=== PATIENT | male | born 1965 | race Caucasian/White ===

== ENCOUNTER 2019-07-05 08:49 | Outpatient (CLI) | payer MEDICARE, MEDICAID, SELFPAY | END 2019-07-05 08:50 | disposition home or self-care (01) | LOC: RAD 08:55 | PROVIDERS: Family Provider Family Medicine; PCP Family Medicine; Visit Provider Internal Medicine Critical Care Medicine | DX: J44.9 Chronic obstructive pulmonary disease, unspecified (principal) | CPT/HCPCS: 94060; 94726; 94729; J7611 ==

== ENCOUNTER 2019-07-27 04:12 | Inpatient (IN) | payer MEDICARE, MEDICAID, SELFPAY ==
[2019-07-27] VITALS (14 sets, daily range): BP systolic 101–132; BP diastolic 75–88; PULSE 92–117; RESP 15–29; TEMP 36.4–36.7; O2SAT 89–96; BMI 38.8
[2019-07-27] MEDS: ipratropium-albuterol 3 mL Neb INHALATION ×3 (07:18→20:28)
--- NOTE | 2019-07-27 07:34 | PM.HP ---
Providers/Chief Complaint Admitting Physician: Susie Johnson MD Primary Care Provider: Norman Ruggiero MD Chief Complaint: CHF History of Present Illness Wilfrido Gavin is a 54 year old male who originally presented to [facility] a week or so ago. He was seen in the emergency room with difficulty breathing. He was evaluated and found to have evidence of some COPD. He was discharged but then had a near syncopal episode and ultimately ended up being admitted to the hospital. Treatment initially involves steroids and antibiotics for COPD exacerbation. He was found to have evidence of some volume overload with elevated BNP. An echocardiogram was done during the hospital stay at [facility] and revealed an ejection fraction of 17%. This is a new finding for him. He states that he had a problem with a low ejection fraction years ago but that he treated it himself and it got better. He states his last ejection fraction was around 50%. Denies any history of coronary artery disease. He has had some arrhythmia with a history of atrial fibrillation. Review of Systems Const: Reports: change in weight Eyes: Denies: change in vision ENMT: Reports: dry mouth; Denies: throat pain Card: Reports: chest pain, palpitations, irregular heart rhythm, edema, swelling of feet/ankles, lightheadedness, pre-syncope, shortness of breath on exertion and shortness of breath when lying down Resp: Reports: shortness of breath, productive cough, non-productive cough and wheezing; Denies: pain on inspiration or coughing up blood GI: Reports: nausea; Denies: abdominal pain, vomiting or diarrhea : Denies: difficulty urinating Musc: Reports: redness (Legs have been red for years) and muscle weakness (General rather than specific); Denies: neck pain or joint pain Skin/Breast: Reports: redness and dry skin; Denies: itching or skin tenderness Neuro: Reports: difficulty walking; Denies: numbness in extremities or weakness in extremities Psych: Reports: anxiety Saurav/Lymph: Denies: easy bruising or easy bleeding Medications/Allergies Home Medications Medication Instructions Recorded Confirmed Last Taken Type aspirin 81 mg PO DAILY 07/27/19 07/27/19 07/26/19 08:00 History atorvastatin 10 mg PO DAILY 07/27/19 07/27/19 07/26/19 08:00 History bumetanide 2 mg PO 0900,1400 07/27/19 07/27/19 07/26/19 14:00 History digoxin 125 mcg PO DAILY 07/27/19 07/27/19 07/26/19 08:00 History doxycycline hyclate 100 mg PO BID 07/27/19 07/27/19 07/26/19 21:00 History xzrkqtspxpm-osdvpllbl-lfbhwtpd 1 inh INHALATION DAILY 07/27/19 07/27/19 07/26/19 08:00 History [Trelegy Ellipta] hydrocodone-acetaminophen 1 tab PO Q6H PRN 07/27/19 07/27/19 07/26/19 22:00 History ipratropium-albuterol 3 ml INHALATION Q6H 07/27/19 07/27/19 07/26/19 22:00 History levalbuterol tartrate [Xopenex HFA] 2 inh INHALATION Q6H PRN 07/27/19 07/27/19 07/26/19 12:00 History lisinopril 5 mg PO BEDTIME 07/27/19 07/27/19 07/26/19 21:00 History metolazone 2.5 mg PO DAILY PRN 07/27/19 07/27/19 07/26/19 08:00 History metoprolol succinate 25 mg PO DAILY 07/27/19 07/27/19 07/26/19 08:00 History potassium chloride 20 meq PO DAILY 07/27/19 07/27/19 07/26/19 08:00 History prednisone 20 mg PO DAILY 07/27/19 07/27/19 07/26/19 08:00 History Allergies Allergy/AdvReac Type Severity Reaction Status Date / Time oxycodone Allergy Unknown Verified 07/27/19 04:29 Penicillins Allergy ALGY-Anaphy Verified 07/27/19 04:29 laxis PFSH Acute PFSH: Statuses (acute, chronic, etc) shown below reflect problem list status as previously entered and may not be historically accurate Medical History (Updated 07/27/19 @ 09:13 by Janet Huber MD) Acute on chronic systolic heart failure Atrial fibrillation and flutter Atrial fibrillation with rapid ventricular response Congestive heart failure COPD (chronic obstructive pulmonary disease) 2-3 L of oxygen by nasal cannula chronically Hyperlipidemia Hypertension Surgical History History of cholecystectomy History of hernia repair History of reconstruction of anterior cruciate ligament tear Family History (Updated 07/27/19 @ 07:54 by Susie Johnson MD) Denies family history of CAD (coronary artery disease) Social History (Updated 07/27/19 @ 07:54 by Susie Johnson MD) Smoking and tobacco status: former smoker Vitals/I&O/Wt Last Vital Signs Temp 97.7 F 07/27/19 07:19 Pulse 102 H 07/27/19 07:23 Resp 21 H 07/27/19 07:19 BP 130/76 07/27/19 07:19 Pulse Ox 96 07/27/19 07:19 07/26/19 07/27/19 07/27/19 22:59 06:59 14:59 Intake Total 240 / 240 Balance 240 / 240 Weight last 48 hrs Weight 119.315 kg Physical Exam Const: COMMON NORMALS: oriented x3 and alert HENMT: COMMON NORMALS: normocephalic and head/scalp atraumatic Eye: COMMON NORMALS: PERRL and EOMs intact bilaterally Neck/C-Spine: COMMON NORMALS: supple GENERAL: Yes JVD Resp: EFFORT & INSPECTION: Yes able to speak in complete sentences and Yes prolonged expiratory phase AUSCULTATION: wheezes scattered wheezes and diminished lung sounds (Both bases) Cardio: JUGULAR VENOUS DISTENTION: JVD positive to the level of the angle of the jaw RHYTHM: abnormal rhythm irregularly irregular HEART SOUNDS: no murmurs GI: COMMON NORMALS: normal to inspection, nondistended, normoactive bowel sounds and soft to palpation Back/Pelvis: COMMON NORMALS: no CVA tenderness Extremity: NARRATIVE EXTREMITY EXAM: 3+ edema with intense erythema noted to both lower extremities below the knee Neuro: COMMON NORMALS: oriented x3 and moves all extremities Psych: COMMON NORMALS: cooperative Skin: NARRATIVE SKIN EXAM: Intense erythema below the knee bilaterally, with no warmth associated. Does have some dry scaling skin noted. Patient states the erythema is chronic and the degree of edema is improved. Data : 07/27/19 08:37 Other Labs: Echocardiogram from outside facility showed an estimated ejection fraction of 17%. Grade 2 diastolic dysfunction was noted. Right ventricular systolic pressure was 38 mmHg right atrial enlargement was noted as was global LV dysfunction BUN and creatinine were 35/0.7, proBNP was 2750, potassium was 5.2, LFTs were normal, H&H was 14/44 A&P Assessment and plan (1) Congestive heart failure: Ejection fraction of 17% which is new. Patient has been on an RICHMOND inhibitor started recently at outside facility. He was transferred for cardiology input and evaluation, particularly in regards to possibility of LifeVest/AICD. Been on Bumex and metolazone as well. Status: Acute Qualifiers: Heart failure chronicity: acute Heart failure type: systolic Qualified Code(s): I50.21 - Acute systolic (congestive) heart failure Code(s): I50.9 - Heart failure, unspecified (2) COPD (chronic obstructive pulmonary disease): Has been on treatment for recent exacerbation and continues on antibiotics in the form of doxycycline as well as prednisone, breathing treatments as well Status: Acute Qualifiers: COPD type: COPD with acute exacerbation Qualified Code(s): J44.1 - Chronic obstructive pulmonary disease with (acute) exacerbation Code(s): J44.9 - Chronic obstructive pulmonary disease, unspecified (3) Atrial fibrillation and flutter: Chronically on digoxin , does have some tachycardia Status: Chronic Code(s): I48.91 - Unspecified atrial fibrillation; I48.92 - Unspecified atrial flutter (4) Hypertension: chronically on beta blockade, richmond inhibitor and diuretics Status: Chronic Qualifiers: Hypertension type: essential hypertension Qualified Code(s): I10 - Essential (primary) hypertension Code(s): I10 - Essential (primary) hypertension (5) Hyperlipidemia: chronically on statin Status: Chronic Qualifiers: Hyperlipidemia type: unspecified Qualified Code(s): E78.5 - Hyperlipidemia, unspecified Code(s): E78.5 - Hyperlipidemia, unspecified Additional A&P Information Inpatient admission Cardiology consultation Continue diuretics that he has been on in the form of Bumex and metolazone for now Continue RICHMOND inhibitor, monitoring renal function Continue beta-blockade Continue aspirin and statin Continue digoxin Continue breathing treatments and doxycycline as well as prednisone for COPD Lovenox for DVT prophylaxis Supportive care otherwise Plans discussed with patient and he was given an opportunity to ask questions Full code Coding Level of Care Code Acute Roll Up Guider Operator for Jamilah Palencia Diagnoses Congestive heart failure I50.21 Heart failure chronicity: acute Heart failure type: systolic COPD (chronic obstructive pulmonary disease) J44.1 COPD type: COPD with acute exacerbation Atrial fibrillation and flutter I48.91; I48.92 Hypertension I10 Hypertension type: essential hypertension Hyperlipidemia E78.5 Hyperlipidemia type: unspecified
--- NOTE | 2019-07-27 07:45 | ECG_ITS ---
Measurements Intervals [place] Rate: 100 P: 68 W[place]: 183 QRS: 251 QRSD: 177 T: 35 QT: 401 QTc: 518 SINUS TACHYCARDIA LEFT ATRIAL ENLARGEMENT [-0.15mV P WAVE IN V1/V2] MARKED RIGHT AXIS DEVIATION [QRS AXIS > 100] RIGHT BUNDLE BRANCH BLOCK [120+ ms QRS DURATION, UPRIGHT V1, 40+ ms S IN I/aVL/V4/V5/V6] ANTEROSEPTAL MYOCARDIAL INFARCTION [40+ ms Q WAVE IN V1-V4], OF INDETERMINATE AGE Compared to ECG 07/26/2018 10:25:43 Atrial abnormality now present Myocardial infarct finding now present Atrial flutter no longer present Electronically Signed On 07-27-2019 20:08:22 HULL INSPECTOR by Janet Huber M.D. [email or web address]
--- NOTE | 2019-07-27 09:08 | PM.CONSULT ---
Providers/Reason For Consult Consulting Physican/Specialty*: ANA Huber MD/cardiology Reason for Consult*: Patient with cardiomyopathy and congestive heart failure Attending Physician: Bao Frost MD Primary Care Provider: Norman Ruggiero MD History of Present Illness History of Present Illness Wilfrido Gavin is a 54 year old male, is transferred to us from [facility]. Apparently the patient was admitted to that hospital with symptoms of progressive shortness of breath and leg swelling. He was found to have LV ejection fraction of around 17% based on the echocardiogram report done at the outside facility. Cardiology consult is requested for further cardiac evaluation recommendations. Patient apparently has a longstanding history of cardiomyopathy and congestive heart failure. He has been very poorly compliant with medications and follow-up. He moved around to many places and doctors in the last few years. Approximately 3 years ago, he was seen by a help desk associate in [place]. He was told to have an ejection fraction around 27% at that time. He was on a LifeVest for a short. Apparently there were some many psychosocial issues surrounding him. As per the patient, the LifeVest was confiscated by his family members and finally it was returned to the [employer]. There was a mention of ICD implantation but the patient never could keep up his follow-up with the physicians or compliant with medications. He is a very poor historian. He has a history of heavy alcohol abuse. According to him, he has not been drinking for the last 6 months. He also has a longstanding history of smoking abuse, a pack a day for 40 years or so. He quit smoking a year ago. For the last few months, his shortness of breath has been getting worse. He has been noticing swelling of both lower extremities. He has not had any chest pain or palpitation. He had an episode of passing out spell on his driveway, 3 months ago. He does not recall exactly how that happened. He was very short of breath prior to this. He has no document history of any cardiac arrhythmia. He was diagnosed with a heart failure 20 years ago. He also had a cardiac catheterization sometime in the past, could be more than 10 years ago. He does not recall exactly where it was done. He has a history of atrial flutter/fibrillation by EKG done in July 2018. He also has a history of hypertension and dyslipidemia. No history for diabetes. No history for CVA. No history for peripheral arterial disease. He was seen by Dr. Singleton-the motion and time study teacher recently. He was complaining of hemoptysis. As of now, his shortness of breath is better. Denies any chest pain or palpitation. Review of Systems Narrative: CONSTITUTIONAL: No fever or chills. Has some amount of fatigue EYES: No blurring of vision or other visual disturbances lately. ENT: No hoarseness of voice, auditory disturbances or sore throat. Has hearing impairment CARDIOVASCULAR: As mentioned above. RESPIRATORY: COPD/shortness of breath also complains of hemoptysis GASTROINTESTINAL: No hematemesis or melena. GENITOURINARY: No dysuria or hematuria. INTEGUMENTARY: No skin rashes or history of skin cancer. NEURO: No transient ischemic attacks or amaurosis. PSYCHIATRIC: No history of psychosis or major depression. HEMATOLOGIC: No bleeding disorders or significant anemia. ENDOCRINE: No history of polyuria or polydipsia. MUSCULOSKELETAL: No recent joint pain or swelling. ALLERGY/IMMUNOLOGY: As mentioned above. Meds/Allergies Home Medications and Allergies Home Medications Medication Instructions Recorded Confirmed Type aspirin 81 mg PO DAILY 07/27/19 07/27/19 History atorvastatin 10 mg PO DAILY 07/27/19 07/27/19 History bumetanide 2 mg PO 0900,1400 07/27/19 07/27/19 History digoxin 125 mcg PO DAILY 07/27/19 07/27/19 History doxycycline hyclate 100 mg PO BID 07/27/19 07/27/19 History kdbvmqvxaun-nyxclairw-bbtsqhaa 1 inh INHALATION DAILY 07/27/19 07/27/19 History [Trelegy Ellipta] hydrocodone-acetaminophen 1 tab PO Q6H PRN 07/27/19 07/27/19 History ipratropium-albuterol 3 ml INHALATION Q6H 07/27/19 07/27/19 History levalbuterol tartrate [Xopenex HFA] 2 inh INHALATION Q6H PRN 07/27/19 07/27/19 History lisinopril 5 mg PO BEDTIME 07/27/19 07/27/19 History metolazone 2.5 mg PO DAILY PRN 07/27/19 07/27/19 History metoprolol succinate 25 mg PO DAILY 07/27/19 07/27/19 History potassium chloride 20 meq PO DAILY 07/27/19 07/27/19 History prednisone 20 mg PO DAILY 07/27/19 07/27/19 History Allergies Allergy/AdvReac Type Severity Reaction Status Date / Time oxycodone Allergy Unknown Verified 07/27/19 04:29 Penicillins Allergy ALGY-Anaphy Verified 07/27/19 04:29 laxis Current Medications Current Medications Generic Name Dose Route Start Last Admin Trade Name Freq PRN Reason Stop Dose Admin Albuterol/Ipratropium 3 ml 07/27/19 06:57 07/27/19 07:18 Duoneb INHALATION 3 ml Q4H PRN Administration SHORTNESS OF BREATH Current Medications Acetaminophen (Tylenol) 650 mg PO Q6H PRN PRN Reason: Mild/Mod Pain Or Temp >/= 101 Hydrocodone Bitart/Acetaminophen ([place] 10-325 Mg) 1 tab PO Q6H PRN PRN Reason: Moderate Pain (Scale Score 5-6) Albuterol/Ipratropium (Duoneb) 3 ml INHALATION Q4H PRN PRN Reason: SHORTNESS OF BREATH Last Admin: 07/27/19 07:18 Dose: 3 ml Documented by: Aspirin (Aspirin Ec) 81 mg PO DAILY [facility] Atorvastatin Calcium (Lipitor) 20 mg PO BEDTIME [facility] Bisacodyl (Dulcolax) 10 mg PO DAILY PRN PRN Reason: CONSTIPATION Bumetanide (Bumex) 1 mg IV Q12H [facility] Digoxin (Lanoxin) 125 mcg PO DAILY [facility] Doxycycline Monohydrate (Vibramycin) 100 mg PO BID [facility] Enoxaparin Sodium (Lovenox) 40 mg SUBCUT Q24H [facility] Lisinopril (Prinivil) 5 mg PO BEDTIME [facility] Metolazone (Zaroxolyn) 2.5 mg PO DAILY [facility] Metoprolol Succinate (Toprol Xl) 25 mg PO DAILY [facility] Non-Formulary Medication (Qhtjidefair-Pgfvsiwak-Vobcfytj [Trelegy Ellipta]) 1 inh INHALATION DAILY [facility] Ondansetron HCl (Zofran) 4 mg PO Q8H PRN PRN Reason: NAUSEA Potassium Chloride (Klor-Con 10) 20 meq PO DAILY [facility] Prednisone (Prednisone) 20 mg PO DAILY [facility] PFSH Acute PFSH: Statuses (acute, chronic, etc) shown below reflect problem list status as previously entered and may not be historically accurate Medical History (Updated 07/27/19 @ 10:26 by Janet Huber MD) Acute on chronic systolic heart failure Atrial fibrillation and flutter Atrial fibrillation with rapid ventricular response Benign essential hypertension with target blood pressure below 140/90 Congestive heart failure COPD (chronic obstructive pulmonary disease) 2-3 L of oxygen by nasal cannula chronically Hyperlipidemia Hypertension Surgical History History of cholecystectomy History of hernia repair History of reconstruction of anterior cruciate ligament tear Family History (Updated 07/27/19 @ 10:29 by Janet Huber MD) Grandmother Congestive heart failure, Onset Age: 70 of heart failure Denies family history of CAD (coronary artery disease) Social History (Updated 07/27/19 @ 07:54 by Susie Johnson MD) Smoking and tobacco status: former smoker Vitals/I&O/Wt Last Vital Signs Temp 97.7 F 07/27/19 07:19 Pulse 102 H 07/27/19 07:23 Resp 21 H 07/27/19 07:19 BP 130/76 07/27/19 07:19 Pulse Ox 96 07/27/19 07:19 07/26/19 07/27/19 07/27/19 22:59 06:59 14:59 Intake Total 240 / 240 Balance 240 / 240 Weight last 48 hrs Weight 263 lb 0.7 oz Physical Exam Narrative: EXAM NARRATIVE: GENERAL: The patient is alert and oriented times three. Not in any acute distress. Slightly tachypneic. HEENT: No significant pallor, icterus or lymphadenopathy. The pupils are reactant to light. Oral cavity: There are no mucous membrane lesions. Funduscopic examination: Fundus is not visualized. NECK: Trachea appears to be central. Soft tissue mass on the back of the neck, possibly lipoma. No JVD or thyromegaly appreciated. No carotid bruit. RESPIRATORY: Chest is symmetrical. No intercostals muscle retraction or any accessory muscle activation. There is no chest wall tenderness. Breath sounds are heard bilaterally. The breath sounds are diminished in the bases. Few fine rales at the base. No evidence of consolidation BREASTS: Deferred. HEART: The PMI could not be palpated. No other palpable precordial events. . S1 and S2 are normal. Soft S3 present. No S4 heard. No pericardial rub or any click heard. ABDOMEN: No vessel pulsations or distention. No tenderness. No organomegaly appreciated. No abdominal bruit. Bowel sounds are normally heard. : Deferred. RECTAL: Deferred. LYMPHATIC: No lymphadenopathy noted in the neck or groin. EXTREMITIES: 2-3+ pitting edema. The lower extremities are diffusely erythematous and scaly with some excoriation but no ulcerations. Peripheral pulses are palpable and fairly good volume and amplitude. MUSCULOSKELETAL: No acute joint deformities or swelling SKIN: There are no significant scars or skin rash noted. Diffuse erythema of the lower extremity with some scaling NEUROPSYCHIATRIC: The patient is alert and oriented x3. Appears to be in a good mood. The higher functions are grossly within normal limits. No tremors or rigidity noted. Data Labs: Other Labs: Laboratory Results - last 24 hr 07/27/19 08:37 Sodium 134 L Potassium 4.1 Chloride 72 L Carbon Dioxide 49 H* Anion Gap 17.1 BUN 40 H Creatinine 0.8 GFR Calculation 100.7 Glucose 98 Calculated Osmolal ity 276 L Calcium 10.7 H Phosphorus 3.0 Magnesium 1.6 L NT-Pro-B Natriuret Pep 1824 H Triglycerides 156 H Cholesterol 96 LDL Cholesterol, C alc 36 L HDL Cholesterol 29 L LDL/HDL Ratio 1.24 Cholesterol/HDL Ra nallely 3.31 TSH 0.82 EKG^: EKG 1: My Interpretation: Sinus rhythm with a heart rate of 100 bpm. Left atrial enlargement. Right bundle branch block. Extreme right axis deviation. A&P Assessment and plan (1) Acute on chronic systolic heart failure: Patient apparently has a history of longstanding LV systolic dysfunction. Poorly compliant with medications and medical follow-up. Currently he has features of decompensated heart failure. Hemodynamically seems to be stable. The plan would be to optimize his afterload reducing agents. He might benefit from Entresto. I will discontinue the lisinopril and start him on losartan 25 mg p.o. daily. After 48 hours, we may discontinue the losartan and start him on Entresto. The etiology of the LV dysfunction is not known at this time. He may benefit from a cardiac catheterization to further evaluate his coronary status and decide on further management. After treating the heart failure appropriately, we may consider further invasive cardiac work-up. Status: Acute Code(s): I50.23 - Acute on chronic systolic (congestive) heart failure (2) Atrial fibrillation with rapid ventricular response: Patient has a history of atrial flutter/fibrillation. Because of the high substrate for arrhythmia, it would be appropriate to start him on IV anticoagulation at this time. I may change the Lovenox dose to therapeutic. Status: Acute Code(s): I48.91 - Unspecified atrial fibrillation (3) Benign essential hypertension with target blood pressure below 140/90: The patient is a stage II hypertension. We will try to optimize his antihypertensive medications. Status: Acute Code(s): I10 - Essential (primary) hypertension (4) Hyperlipidemia: Patient is on atorvastatin. This may be continued. Status: Chronic Qualifiers: Hyperlipidemia type: unspecified Qualified Code(s): E78.5 - Hyperlipidemia, unspecified Code(s): E78.5 - Hyperlipidemia, unspecified (5) COPD (chronic obstructive pulmonary disease): Patient has a history of hemoptysis. He was evaluated by the motion and time study teacher. May try to optimize the bronchodilator treatment. Management as per the primary. Status: Acute Qualifiers: COPD type: COPD with acute exacerbation Qualified Code(s): J44.1 - Chronic obstructive pulmonary disease with (acute) exacerbation Code(s): J44.9 - Chronic obstructive pulmonary disease, unspecified Additional A&P Information His other problems are History of heavy alcohol abuse, 6 months ago History of smoking abuse Based on the patient's clinical response, further recommendations will be made. Thank you for the opportunity to eval this patient and make these recommendations Coding Level of Care Code Acute Stock Buyer for Jamilah Palencia Diagnoses Acute on chronic systolic heart failure I50.23 Atrial fibrillation with rapid ventricular response I48.91 Benign essential hypertension with target blood pressure below 140/90 I10 Hyperlipidemia E78.5 Hyperlipidemia type: unspecified COPD (chronic obstructive pulmonary disease) J44.1 COPD type: COPD with acute exacerbation
[2019-07-27 09:15] LABS: Blood Urea Nitrogen 40 mg/dL (6-20); Calcium 10.7 mg/dL (8.5-10.5); Chloride 72 mmol/L (98-107); Chol HDL Ratio 3.31 mg/dL (1.0-5.00); Cholesterol 96 mg/dL (0-200); Glomerular Filtration Rate 100.7 mL/min (90-130); Glucose 98 mg/dL (65-115); HDL Cholesterol 29 mg/dL (60-100); LDL Cholesterol Calculated 36 mg/dL (50-129); LDL HDL Ratio 1.24 RATIO (0.00-3.22); Magnesium 1.6 mg/dL (1.7-2.3); NT Pro B Type Natriuretic Pept 1824 pg/mL (0-125); Osmolality Calculated 276 mOsm/kg (285-295); Potassium 4.1 mmol/L (3.5-5.1); Sodium 134 mmol/L (136-145); Thyroid Stimulating Hormone 0.82 uIU/mL (0.27-4.20); Triglycerides 156 mg/dL (0-150)
[2019-07-27 09:21] LABS: Anion Gap 17.1 (5-19)
[2019-07-27] MEDS: enoxaparin 40 mg/0.4 mL Syringe SUBCUT (09:25)
[2019-07-27 09:26] LABS: Carbon Dioxide 49 mmol/L (22-29)
[2019-07-27] MEDS: aspirin 81 mg EC Tablet PO (09:26)
[2019-07-27] MEDS: metoprolol succinate ER (24 HR) 25 mg Tablet PO (09:26)
[2019-07-27] MEDS: predniSONE 20 mg Tablet PO (09:26)
[2019-07-27] MEDS: doxycycline 100 mg Tablet PO ×2 (09:26→17:30)
[2019-07-27] MEDS: digoxin 125 mcg Tablet PO (09:26)
[2019-07-27] MEDS: metOLazone 5 MG Tablet 2.5 MG PO (09:27)
[2019-07-27] MEDS: bumetanide 0.25 mg/mL SDV 10 mL 2 MG IV (09:42)
--- NOTE | 2019-07-27 12:46 | PC.CHAP ---
Pastoral Care Encounter/Spiritual Assessment Type of Contact [] Declined distribution field technician visit [] Patient/Family/Request visit [] Outpatient visit [] Follow-up visit [] Physician referral [] Code/Alert [] Routine visit [] Staff referral [] Actively dying [] Patient sleeping [] Family support [] [] Out of room [] Palliative care [] [] Receiving care in room [] Pre-surgical visit [] Trauma [] Long length of stay [] ICU visit [] Other: Relational/Emotional Strength [] Patient feels connected with others/family/visitors/staff [] Distress [] Loneliness/isolation [] Abandonment Spirituality of Patient [x] Person of Felicia [] Attends Spiritism of their Felicia [] Believes in Prayer [] Reads Bible or Druze materials [] There are Spiritual issues to be addressed Steam Heating Installer Interventions [x] Prayer [] Active listening [] Non-anxious presence [] Spiritual/emotional support [] Crisis/trauma care [] Spiritual counseling [] Bereavement support [] Provided bereavement packet [] Provided Bible/devotional materials [] Provided toy/stuffed animal, coloring book to patient or family member [] Provided Communion [] Anointing/[place] [] Salvation [x] Completed spiritual assessment [] Other: Impact on Illness or Injury [] Angry [] Fearful [] Anxious [] Often cries [] Exhaustion [] Unable to work [] Unable to attend shinto [] Unable to walk/stand [] Unable to read [] Unable to drive [] Unable to eat/drink [] Unable to sleep [] Unable to be with family [] Patient intubated [] Other: Summary Sivakumar requested floor fan for patients comfort. Time spent with patient 15 min
--- NOTE | 2019-07-27 13:59 | PM.PN ---
Subjective Subjective: Interval history: History and physical was reviewed. Current denies any complaints currently other than short of breath with exertion. No chest discomfort. 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 Medications: Reviewed: Yes Vitals/I&O/Wt Last Vital Signs Temp 97.6 F 07/27/19 10:55 Pulse 95 07/27/19 13:36 Resp 18 07/27/19 13:36 BP 132/87 07/27/19 10:55 Pulse Ox 94 07/27/19 13:36 07/26/19 07/27/19 07/27/19 22:59 06:59 14:59 Intake Total 240 / 240 240 / 240 Output Total 1250 / 1250 Balance 240 / 240 -1010 / -1010 Weight last 48 hrs Weight 119.315 kg Physical Exam Narrative: EXAM NARRATIVE: General exam no apparent distress Cardiovascular regular rate and rhythm, heart sounds distant Lungs bibasilar crackles Abdomen is soft, positive bowel sounds Extremities 1+ bilateral edema, which appears chronic Data : 07/27/19 08:37 A&P Assessment and plan (1) Congestive heart failure: Severely low EF of 17%. Past history of cardiomyopathy which he reports recovered in the past. He reports he has had a LifeVest in the past, but this was taken away. Cardiology is evaluating. Currently on RICHMOND inhibitor, bumetanide and metolazone , low-dose beta-bal Status: Acute Qualifiers: Heart failure type: systolic Heart failure chronicity: acute Qualified Code(s): I50.21 - Acute systolic (congestive) heart failure Code(s): I50.9 - Heart failure, unspecified (2) COPD (chronic obstructive pulmonary disease): She has had pulmonary function test done showing an FEV1 of approximately 1. Past history of smoking but has now quit. On chronic oxygen. Currently on doxycycline and prednisone for acute exacerbation. Status: Acute Qualifiers: COPD type: COPD with acute exacerbation Qualified Code(s): J44.1 - Chronic obstructive pulmonary disease with (acute) exacerbation Code(s): J44.9 - Chronic obstructive pulmonary disease, unspecified (3) Atrial fibrillation and flutter: On digoxin, metoprolol. Rate is controlled. Status: Chronic Code(s): I48.91 - Unspecified atrial fibrillation; I48.92 - Unspecified atrial flutter (4) Hypertension: Medications as noted Status: Chronic Qualifiers: Hypertension type: essential hypertension Qualified Code(s): I10 - Essential (primary) hypertension Code(s): I10 - Essential (primary) hypertension (5) Hyperlipidemia: Statin Status: Chronic Qualifiers: Hyperlipidemia type: unspecified Qualified Code(s): E78.5 - Hyperlipidemia, unspecified Code(s): E78.5 - Hyperlipidemia, unspecified Additional A&P Information Appreciate cardiology consultation Cardiology is contemplating Entresto Consider full anticoagulation Continue aspirin, statin Continue prednisone, nebs, doxycycline Cardiology to address whether LifeVest will again be considered TSH was checked and normal. 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
[2019-07-27] MEDS: atorvastatin 40 mg Tablet 20 MG PO (20:03)
[2019-07-27] MEDS: bumetanide 0.25 mg/mL SDV 10 mL 1 MG IV (20:04)
[2019-07-27] MEDS: enoxaparin 120 mg/0.8 mL Syringe SUBCUT (20:04)
[2019-07-27] MEDS: HYDROcodone-acetaminophen 10-325 mg Tablet 1 TAB PO (20:07)
--- NOTE | 2019-07-27 20:14 | PC.NURSE ---
Assumed care of patient at 1900 after receiving bedside report from BOOM Vargas. Family at bedside Explained plan for the evening. Patient and family verbalized complete understanding.
[2019-07-28] VITALS (11 sets, daily range): BP systolic 101–125; BP diastolic 54–76; PULSE 93–110; RESP 17–20; TEMP 36.4–36.7; O2SAT 90–92
--- NOTE | 2019-07-28 05:27 | PC.NURSE ---
Patient awoke this morning feeling disoriented and confused stating, I just don't know where I am. Re-oriented patient to time and place. Patient verbalized understanding and stated, I remember being in the hospital but I thought I was in [place]. Provided reassurance to patient. Left light on to help patient with orientation. Patient is very pleasant.
[2019-07-28 05:31] LABS: Anion Gap 13.2 (5-19); Blood Urea Nitrogen 34 mg/dL (6-20); Calcium 10.5 mg/dL (8.5-10.5); Chloride 73 mmol/L (98-107); Glomerular Filtration Rate 117.5 mL/min (90-130); Glucose 107 mg/dL (65-115); Osmolality Calculated 272 mOsm/kg (285-295); Potassium 3.2 mmol/L (3.5-5.1); Sodium 132 mmol/L (136-145)
[2019-07-28 05:50] LABS: Carbon Dioxide 49 mmol/L (22-29)
[2019-07-28] MEDS: enoxaparin 120 mg/0.8 mL Syringe SUBCUT ×2 (07:59→20:46)
[2019-07-28] MEDS: bumetanide 0.25 mg/mL SDV 10 mL 1 MG IV ×2 (08:00→20:46)
[2019-07-28] MEDS: HYDROcodone-acetaminophen 10-325 mg Tablet 1 TAB PO ×3 (08:01→21:34)
[2019-07-28] MEDS: ipratropium-albuterol 3 mL Neb INHALATION ×2 (08:51→14:27)
[2019-07-28] MEDS: metoprolol succinate ER (24 HR) 25 mg Tablet PO (09:31)
[2019-07-28] MEDS: losartan 50 mg Tablet 25 MG PO (09:32)
[2019-07-28] MEDS: digoxin 125 mcg Tablet PO (09:33)
[2019-07-28] MEDS: aspirin 81 mg EC Tablet PO (09:34)
[2019-07-28] MEDS: predniSONE 20 mg Tablet PO (09:34)
[2019-07-28] MEDS: doxycycline 100 mg Tablet PO ×2 (09:34→18:11)
[2019-07-28] MEDS: metOLazone 5 MG Tablet 2.5 MG PO (09:34)
[2019-07-28 10:13] LABS: Digoxin 0.5 ng/mL (0.6-1.2)
--- NOTE | 2019-07-28 10:21 | PC.CHAP ---
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 visit [] Patient/Family/Request visit [] Outpatient visit [] Follow-up visit [] Physician referral [] Code/Alert [x] Routine visit [] Staff referral [] Actively dying [] Patient sleeping [] Family support [] [] Out of room [] Palliative care [] [] Receiving care in room [] Pre-surgical visit [] Trauma [] Long length of stay [] ICU visit [] Other: Relational/Emotional Strength [x] Patient feels connected with others/family/visitors/staff [] Distress [] Loneliness/isolation [] Abandonment Spirituality of Patient [] Person of Felicia [] Attends Jewish of their Felicia [] Believes in Prayer [] Reads Bible or Jew materials [] There are Spiritual issues to be addressed Top Trimmer Interventions [x] Prayer [] Active listening [] Non-anxious presence [] Spiritual/emotional support [] Crisis/trauma care [] Spiritual counseling [] Bereavement support [] Provided bereavement packet [] Provided Bible/devotional materials [] Provided toy/stuffed animal, coloring book to patient or family member [] Provided Communion [] Anointing/[place] [] Salvation [x] Completed spiritual assessment [] Other: Impact on Illness or Injury [] Angry [] Fearful [] Anxious [] Often cries [] Exhaustion [] Unable to work [] Unable to attend adventism [] Unable to walk/stand [] Unable to read [] Unable to drive [] Unable to eat/drink [] Unable to sleep [] Unable to be with family [] Patient intubated [] Other: Summary Patients family present. Patient requested shena Osito. Sivakumar inquired with patients nurse, who gave approval. Tappan obtained from [employer]. Time spent with patient 15min
--- NOTE | 2019-07-28 13:33 | P.PN_ITS ---
Subjective Subjective: Interval history: Wilfrido reports he may be a little bit better. Overall it is hard for him to tell. Medications: Reviewed: Yes Vitals/I&O/Wt Last Vital Signs Temp 98.0 F 07/28/19 10:58 Pulse 97 07/28/19 10:58 Resp 19 H 07/28/19 10:58 BP 101/69 07/28/19 10:58 Pulse Ox 90 07/28/19 10:58 07/27/19 07/28/19 07/28/19 22:59 06:59 14:59 Intake Total 600 / 960 480 / 480 Output Total 1100 / 2700 1300 / 1300 Balance -500 / -1740 -820 / -820 Weight last 48 hrs Weight 117.435 kg Weight 118.07 kg Weight 119.315 kg Physical Exam Narrative: EXAM NARRATIVE: General exam no apparent distress Cardiovascular regular rate and rhythm, heart sounds distant Lungs bibasilar crackles Abdomen is soft, positive bowel sounds Extremities 1+ bilateral edema, which appears chronic Data : 07/28/19 03:40 A&P Assessment and plan (1) Congestive heart failure: Severely low EF of 17%. Past history of cardiomyopathy which he reports recovered in the past. He reports he has had a LifeVest in the past, but this was taken away. Cardiology is evaluating. They are considering Entresto, angiogram Currently on RICHMOND inhibitor, bumetanide IV and metolazone , low-dose beta- bal. It appears he is diuresing slowly. Status: Acute Qualifiers: Heart failure type: systolic Heart failure chronicity: acute Qualified Code(s): I50.21 - Acute systolic (congestive) heart failure Code(s): I50.9 - Heart failure, unspecified (2) COPD (chronic obstructive pulmonary disease): He has had pulmonary function test done showing an FEV1 of approximately 1. Past history of smoking but has now quit. On chronic oxygen. Currently on doxycycline and prednisone for acute exacerbation. Status: Acute Qualifiers: COPD type: COPD with acute exacerbation Qualified Code(s): J44.1 - Chronic obstructive pulmonary disease with (acute) exacerbation Code(s): J44.9 - Chronic obstructive pulmonary disease, unspecified (3) Atrial fibrillation and flutter: On digoxin, metoprolol. Rate is controlled. Status: Chronic Code(s): I48.91 - Unspecified atrial fibrillation; I48.92 - Unspecified atrial flutter (4) Hypertension: Medications as noted Status: Chronic Qualifiers: Hypertension type: essential hypertension Qualified Code(s): I10 - Essential (primary) hypertension Code(s): I10 - Essential (primary) hypertension (5) Hyperlipidemia: Statin Status: Chronic Qualifiers: Hyperlipidemia type: unspecified Qualified Code(s): E78.5 - Hyperlipidemia, unspecified Code(s): E78.5 - Hyperlipidemia, unspecified Additional A&P Information Appreciate cardiology consultation Cardiology is contemplating Entresto Full dose anticoagulation has been started secondary to atrial fibrillation Continue aspirin, statin Continue prednisone, nebs, doxycycline Cardiology to address whether LifeVest will again be considered TSH was checked and normal. 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
--- NOTE | 2019-07-28 19:47 | PM.PN ---
Subjective Subjective: Interval history: Patient is feeling somewhat better. He still has the dyspnea on exertion. No chest pain. No palpitation. Medications: Reviewed: Yes Medication Review Details: Current Medications Acetaminophen (Tylenol) 650 mg PO Q6H PRN PRN Reason: Mild/Mod Pain Or Temp >/= 101 Hydrocodone Bitart/Acetaminophen ([place] 10-325 Mg) 1 tab PO Q6H PRN PRN Reason: Moderate Pain (Scale Score 5-6) Last Admin: 07/28/19 15:39 Dose: 1 tab Documented by: Albuterol/Ipratropium (Duoneb) 3 ml INHALATION Q4H PRN PRN Reason: SHORTNESS OF BREATH Last Admin: 07/28/19 14:27 Dose: 3 ml Documented by: Aspirin (Aspirin Ec) 81 mg PO DAILY [facility] Last Admin: 07/28/19 09:34 Dose: 81 mg Documented by: Atorvastatin Calcium (Lipitor) 20 mg PO BEDTIME [facility] Last Admin: 07/27/19 20:03 Dose: 20 mg Documented by: Bisacodyl (Dulcolax) 10 mg PO DAILY PRN PRN Reason: CONSTIPATION Bumetanide (Bumex) 1 mg IV Q12H [facility] Last Admin: 07/28/19 08:00 Dose: 1 mg Documented by: Digoxin (Lanoxin) 125 mcg PO DAILY [facility] Last Admin: 07/28/19 09:33 Dose: 125 mcg Documented by: Diphenhydramine HCl (Benadryl) 50 mg PO ONCE ONE Stop: 07/29/19 15:31 Doxycycline Monohydrate (Vibramycin) 100 mg PO BID [facility] Last Admin: 07/28/19 18:11 Dose: 100 mg Documented by: Enoxaparin Sodium (Lovenox) 120 mg SUBCUT Q12H [facility] Sodium Chloride (Sodium Chloride 0.9%) 1,000 mls @ 50 mls/hr IV .Q20H ONE Stop: 07/29/19 14:50 Losartan Potassium (Cozaar) 25 mg PO DAILY [facility] Last Admin: 07/28/19 09:32 Dose: 25 mg Documented by: Metolazone (Zaroxolyn) 2.5 mg PO DAILY [facility] Last Admin: 07/28/19 09:34 Dose: 2.5 mg Documented by: Metoprolol Succinate (Toprol Xl) 25 mg PO DAILY [facility] Last Admin: 07/28/19 09:31 Dose: 25 mg Documented by: Non-Formulary Medication (Htuggalgiqa-Udetivsqz-Ocncpjpj [Trelegy Ellipta]) 1 inh INHALATION DAILY [facility] Ondansetron HCl (Zofran) 4 mg PO Q8H PRN PRN Reason: NAUSEA Potassium Chloride (Klor-Con 10) 20 meq PO DAILY [facility] Last Admin: 07/28/19 09:32 Dose: 20 meq Documented by: Prednisone (Prednisone) 20 mg PO DAILY [facility] Last Admin: 07/28/19 09:34 Dose: 20 mg Documented by: Vitals/I&O/Wt Last Vital Signs Temp 97.6 F 07/28/19 15:16 Pulse 96 07/28/19 15:16 Resp 17 07/28/19 15:16 BP 102/66 07/28/19 15:16 Pulse Ox 92 07/28/19 15:16 07/28/19 07/28/19 07/28/19 06:59 14:59 22:59 Intake Total 480 / 480 240 / 720 Output Total 1500 / 1500 Balance -1020 / -1020 240 / -780 Weight last 48 hrs Weight 258 lb 14.4 oz Weight 260 lb 4.8 oz Weight 263 lb 0.7 oz Physical Exam Narrative: EXAM NARRATIVE: GENERAL: The patient is alert and oriented times three. Not in any acute distress. Slightly tachypneic. HEENT: No significant pallor, icterus or lymphadenopathy. Oral cavity: There are no mucous membrane lesions. NECK: Trachea appears to be central. Soft tissue mass on the back of the neck, possibly lipoma. No JVD or thyromegaly appreciated. No carotid bruit. RESPIRATORY: Chest is symmetrical. No intercostals muscle retraction or any accessory muscle activation. There is no chest wall tenderness. Breath sounds are heard bilaterally. The breath sounds are diminished in the bases. Few fine rales at the base. No evidence of consolidation BREASTS: Deferred. HEART: The PMI could not be palpated. No other palpable precordial events. . S1 and S2 are normal. Soft S3 present. No S4 heard. No pericardial rub or any click heard. ABDOMEN: No vessel pulsations or distention. No tenderness. No organomegaly appreciated. No abdominal bruit. Bowel sounds are normally heard. : Deferred. RECTAL: Deferred. LYMPHATIC: No lymphadenopathy noted in the neck or groin. EXTREMITIES: 2+ pitting edema. The lower extremities are diffusely erythematous and scaly with some excoriation but no ulcerations. Peripheral pulses are palpable and fairly good volume and amplitude. MUSCULOSKELETAL: No acute joint deformities or swelling SKIN: Diffuse erythema of the lower extremity with some scaling NEUROPSYCHIATRIC: The patient is alert and oriented x3. Appears to be in a good mood. The higher functions are grossly within normal limits. No tremors or rigidity noted. Data : 07/29/19 05:26 07/29/19 05:23 Other Labs: Abnormal lab results 07/28/19 07/28/19 Range/Units 03:40 03:40 Sodium 132 L (136-145) mmol/L Potassium 3.2 L (3.5-5.1) mmol/L Chloride 73 L (98-107) mmol/L Carbon Dioxide 49 H* (22-29) mmol/L BUN 34 H (6-20) mg/dL Calculated Osmolality 272 L (285-295) mOsm/kg Digoxin 0.5 L (0.6-1.2) ng/mL A&P Assessment and plan (1) Acute on chronic systolic heart failure: Patient apparently has a history of longstanding LV systolic dysfunction. Poorly compliant with medications and medical follow-up. Currently he has features of decompensated heart failure. Hemodynamically seems to be stable. The plan would be to optimize his afterload reducing agents. He might benefit from Entresto. I will discontinue the lisinopril and start him on losartan 25 mg p.o. daily. After 48 hours, we may discontinue the losartan and start him on Entresto. The etiology of the LV dysfunction is not known at this time. He may benefit from a cardiac catheterization to further evaluate his coronary status and decide on further management. This was discussed the patient in detail which he understood well. We may go ahead and schedule him for a cardiac catheterization tomorrow. The risk of bleeding, hematoma, vascular injury, myocardial infarction, CVA, renal failure and other concomitant complications were explained in detail. We will do a BMP and CBC in the morning. Status: Acute Code(s): I50.23 - Acute on chronic systolic (congestive) heart failure (2) Atrial fibrillation with rapid ventricular response: Patient has a history of atrial flutter/fibrillation. But currently he seems to be in a regular rhythm. Because of the high substrate for arrhythmia, it would be appropriate to start him on IV anticoagulation at this time. I may change the Lovenox dose to therapeutic. Status: Acute Code(s): I48.91 - Unspecified atrial fibrillation (3) Benign essential hypertension with target blood pressure below 140/90: currently the blood pressure is in the normal range Status: Acute Code(s): I10 - Essential (primary) hypertension (4) Hyperlipidemia: Patient is on atorvastatin. This may be continued. Status: Chronic Qualifiers: Hyperlipidemia type: unspecified Qualified Code(s): E78.5 - Hyperlipidemia, unspecified Code(s): E78.5 - Hyperlipidemia, unspecified (5) COPD (chronic obstructive pulmonary disease): Patient has a history of hemoptysis. He was evaluated by the core rescuer. May try to optimize the bronchodilator treatment. Management as per the primary. 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
[2019-07-28] MEDS: atorvastatin 40 mg Tablet 20 MG PO (20:46)
[2019-07-28 21:44] LABS: Basophils % 0.2 %; Eosinophils % 0.4 %; Lymphocytes # 1.9 10^3/uL (0.8-4.8); Lymphocytes % 17.2 %; Mean Corpuscular HGB Conc 32.1 g/dL (30.0-36.0); Mean Corpuscular Hemoglobin 28.4 pg (28.0-34.0); Mean Corpuscular Volume 88.6 fL (80-94); Mean Platelet Volume 10.9 fL (7.4-10.4); Monocytes # 0.9 10^3/uL (0.2-0.9); Monocytes % 8.2 %; Neutrophils # 8.1 10^3/uL (1.8-7.7); Neutrophils % 73.5 %; Nucleated Red Blood Cells % 0 %; Platelet Count 203 10^3/cmm (130-400); Red Blood Count 5.98 10^6/uL (4.1-5.3); Red Cell Distribution Width 14.5 % (12.1-15.1)
--- NOTE | 2019-07-28 21:52 | PC.NURSE ---
Patient has signed consent for [facility] and has been prepped per protocol.
[2019-07-29] VITALS (61 sets, daily range): BP systolic 85–110; BP diastolic 54–78; PULSE 83–113; RESP 13–36; TEMP 36.6–37; O2SAT 90–95
[2019-07-29 05:33] LABS: Basophils % 0.2 %; Eosinophils # 0.1 10^3/uL (0.0-0.8); Hematocrit 49.2 % (42.0-52.0); Hemoglobin 15.8 g/dL (11.7-16.6); Lymphocytes # 2.4 10^3/uL (0.8-4.8); Lymphocytes % 23.4 %; Mean Corpuscular HGB Conc 32.1 g/dL (30.0-36.0); Mean Corpuscular Hemoglobin 28.3 pg (28.0-34.0); Mean Corpuscular Volume 88.2 fL (80-94); Mean Platelet Volume 10.2 fL (7.4-10.4); Monocytes % 9.5 %; Neutrophils # 6.8 10^3/uL (1.8-7.7); Neutrophils % 65.2 %; Nucleated Red Blood Cells % 0 %; Platelet Count 178 10^3/cmm (130-400); Red Blood Count 5.58 10^6/uL (4.1-5.3); Red Cell Distribution Width 14.5 % (12.1-15.1); White Blood Count 10.4 10^3/uL (4.0-10.0)
[2019-07-29 05:49] LABS: Blood Urea Nitrogen 52 mg/dL (6-20); Calcium 9.8 mg/dL (8.5-10.5); Chloride 73 mmol/L (98-107); Glomerular Filtration Rate 87.9 mL/min (90-130); Glucose 79 mg/dL (65-115); Osmolality Calculated 259 mOsm/kg (285-295); Sodium 126 mmol/L (136-145)
[2019-07-29 06:25] LABS: Potassium 4.1 mmol/L (3.5-5.1)
[2019-07-29] MEDS: HYDROcodone-acetaminophen 10-325 mg Tablet 1 TAB PO ×3 (06:31→22:30)
[2019-07-29 06:49] LABS: Anion Gap 14.1 (5-19)
[2019-07-29 06:50] LABS: Carbon Dioxide 43 mmol/L (22-29)
[2019-07-29] MEDS: ipratropium-albuterol 3 mL Neb INHALATION ×2 (08:03→22:36)
[2019-07-29] MEDS: enoxaparin 120 mg/0.8 mL Syringe SUBCUT ×2 (08:58→20:06)
[2019-07-29] MEDS: metoprolol succinate ER (24 HR) 25 mg Tablet PO (08:59)
[2019-07-29] MEDS: digoxin 125 mcg Tablet PO (09:00)
[2019-07-29] MEDS: losartan 50 mg Tablet 25 MG PO (09:00)
[2019-07-29] MEDS: aspirin 81 mg EC Tablet PO (09:00)
[2019-07-29] MEDS: bumetanide 0.25 mg/mL SDV 10 mL 1 MG IV (09:13)
[2019-07-29] MEDS: doxycycline 100 mg Tablet PO ×2 (09:15→17:37)
--- NOTE | 2019-07-29 12:12 | P.PN_ITS ---
Subjective Subjective: Interval history: Wilfrido reports he is breathing easier. Less swollen. Plans to have angiogram today. Medications: Reviewed: Yes Vitals/I&O/Wt Last Vital Signs Temp 97.8 F 07/29/19 10:46 Pulse 95 07/29/19 10:46 Resp 16 07/29/19 10:46 BP 96/74 07/29/19 07:15 Pulse Ox 91 07/29/19 10:46 07/28/19 07/29/19 07/29/19 22:59 06:59 14:59 Intake Total 360 / 840 120 / 120 Output Total 400 / 1900 1350 / 3250 350 / 350 Balance -40 / -1060 -1350 / -2410 -230 / -230 Weight last 48 hrs Weight 120.882 kg Weight 119.113 kg Weight 117.435 kg Weight 118.07 kg Physical Exam Narrative: EXAM NARRATIVE: General exam no apparent distress Cardiovascular irregular, irregular rhythm, heart sounds distant Lungs bibasilar crackles Abdomen is soft, positive bowel sounds Extremities trace bilateral edema, which appears chronic. Improved from admission Data : 07/29/19 05:26 07/29/19 05:23 A&P Assessment and plan (1) Congestive heart failure: Ejection fraction of 17% which is new. Patient has been on an RICHMOND inhibitor started recently at outside facility. He was transferred for cardiology input and evaluation, particularly in regards to possibility of LifeVest/AICD. He continues on Bumex and metolazone as well. Secondary to hyponatremia, discontinue metolazone Status: Acute Qualifiers: Heart failure type: systolic Heart failure chronicity: acute Qualified Code(s): I50.21 - Acute systolic (congestive) heart failure Code(s): I50.9 - Heart failure, unspecified (2) COPD (chronic obstructive pulmonary disease): Has been on treatment for recent exacerbation and continues on antibiotics in the form of doxycycline as well as prednisone, breathing treatments as well Discontinue prednisone. No wheezing currently. Status: Acute Qualifiers: COPD type: COPD with acute exacerbation Qualified Code(s): J44.1 - Chronic obstructive pulmonary disease with (acute) exacerbation Code(s): J44.9 - Chronic obstructive pulmonary disease, unspecified (3) Atrial fibrillation and flutter: Chronically on digoxin , rate overall controlled Status: Chronic Code(s): I48.91 - Unspecified atrial fibrillation; I48.92 - Unspecified atrial flutter (4) Hypertension: chronically on beta blockade, richmond inhibitor and diuretics Status: Chronic Qualifiers: Hypertension type: essential hypertension Qualified Code(s): I10 - Essential (primary) hypertension Code(s): I10 - Essential (primary) hypertension (5) Hyperlipidemia: chronically on statin Status: Chronic Qualifiers: Hyperlipidemia type: unspecified Qualified Code(s): E78.5 - Hyperli pidemia, unspecified Code(s): E78.5 - Hyperlipidemia, unspecified Additional A&P Information Hyponatremia. Hold thiazide diuretic. Repeat BMP this afternoon Appreciate cardiology consultation Cardiology is contemplating Entresto Angiogram today Full dose anticoagulation has been started secondary to atrial fibrillation Continue aspirin, statin Cardiology to address whether LifeVest will again be considered TSH was checked and normal. Full code Attestations Medical Necessity Statement*: Needs continued hospitalization for further treatment of acute congestive heart failure, evaluation of low EF with angiogram. Coding Level of Care Code Acute Molecular Physicist for [facility] Diagnoses Congestive heart failure I50.21 Heart failure type: systolic Heart failure chronicity: acute COPD (chronic obstructive pulmonary disease) J44.1 COPD type: COPD with acute exacerbation Atrial fibrillation and flutter I48.91; I48.92 Hypertension I10 Hypertension type: essential hypertension Hyperlipidemia E78.5 Hyperlipidemia type: unspecified
--- NOTE | 2019-07-29 12:32 | PM.PN ---
Subjective Subjective: Interval history: Patient is feeling somewhat better. No chest pain or palpitations. No new arrhythmias are noted on the monitor. The blood pressure is running low in the 80s. The urine output seems to be appropriate. His BUN is going up. The white cell count is slightly elevated as well Medications: Reviewed: Yes Medication Review Details: Current Medications Acetaminophen (Tylenol) 650 mg PO Q6H PRN PRN Reason: Mild/Mod Pain Or Temp >/= 101 Hydrocodone Bitart/Acetaminophen ([place] 10-325 Mg) 1 tab PO Q6H PRN PRN Reason: Moderate Pain (Scale Score 5-6) Last Admin: 07/28/19 15:39 Dose: 1 tab Documented by: Albuterol/Ipratropium (Duoneb) 3 ml INHALATION Q4H PRN PRN Reason: SHORTNESS OF BREATH Last Admin: 07/28/19 14:27 Dose: 3 ml Documented by: Aspirin (Aspirin Ec) 81 mg PO DAILY [facility] Last Admin: 07/28/19 09:34 Dose: 81 mg Documented by: Atorvastatin Calcium (Lipitor) 20 mg PO BEDTIME [facility] Last Admin: 07/27/19 20:03 Dose: 20 mg Documented by: Bisacodyl (Dulcolax) 10 mg PO DAILY PRN PRN Reason: CONSTIPATION Bumetanide (Bumex) 1 mg IV Q12H [facility] Last Admin: 07/28/19 08:00 Dose: 1 mg Documented by: Digoxin (Lanoxin) 125 mcg PO DAILY [facility] Last Admin: 07/28/19 09:33 Dose: 125 mcg Documented by: Diphenhydramine HCl (Benadryl) 50 mg PO ONCE ONE Stop: 07/29/19 15:31 Doxycycline Monohydrate (Vibramycin) 100 mg PO BID [facility] Last Admin: 07/28/19 18:11 Dose: 100 mg Documented by: Enoxaparin Sodium (Lovenox) 120 mg SUBCUT Q12H [facility] Sodium Chloride (Sodium Chloride 0.9%) 1,000 mls @ 50 mls/hr IV .Q20H ONE Stop: 07/29/19 14:50 Losartan Potassium (Cozaar) 25 mg PO DAILY [facility] Last Admin: 07/28/19 09:32 Dose: 25 mg Documented by: Metolazone (Zaroxolyn) 2.5 mg PO DAILY [facility] Last Admin: 07/28/19 09:34 Dose: 2.5 mg Documented by: Metoprolol Succinate (Toprol Xl) 25 mg PO DAILY [facility] Last Admin: 07/28/19 09:31 Dose: 25 mg Documented by: Non-Formulary Medication (Kpwfaogqxol-Ndpqdgawu-Dzoazgnq [Trelegy Ellipta]) 1 inh INHALATION DAILY [facility] Ondansetron HCl (Zofran) 4 mg PO Q8H PRN PRN Reason: NAUSEA Potassium Chloride (Klor-Con 10) 20 meq PO DAILY [facility] Last Admin: 07/28/19 09:32 Dose: 20 meq Documented by: Prednisone (Prednisone) 20 mg PO DAILY [facility] Last Admin: 07/28/19 09:34 Dose: 20 mg Documented by: Vitals/I&O/Wt Last Vital Signs Temp 97.8 F 07/29/19 10:46 Pulse 95 07/29/19 10:46 Resp 16 07/29/19 10:46 BP 96/74 07/29/19 07:15 Pulse Ox 91 07/29/19 10:46 07/28/19 07/29/19 07/29/19 22:59 06:59 14:59 Intake Total 360 / 840 120 / 120 Output Total 400 / 1900 1350 / 3250 350 / 350 Balance -40 / -1060 -1350 / -2410 -230 / -230 Weight last 48 hrs Weight 266 lb 8 oz Weight 262 lb 9.6 oz Weight 258 lb 14.4 oz Weight 260 lb 4.8 oz Physical Exam Narrative: EXAM NARRATIVE: GENERAL: The patient is alert and oriented times three. Not in any acute distress. Slightly tachypneic. HEENT: No significant pallor, icterus or lymphadenopathy. Oral cavity: There are no mucous membrane lesions. NECK: Trachea appears to be central. Soft tissue swelling on the back of the neck, possibly lipoma. No JVD or thyromegaly appreciated. No carotid bruit. RESPIRATORY: Chest is symmetrical. No intercostals muscle retraction or any accessory muscle activation. There is no chest wall tenderness. Breath sounds are heard bilaterally. The breath sounds are diminished in the bases. Few fine rales at the base. No evidence of consolidation BREASTS: Deferred. HEART: The PMI could not be palpated. No other palpable precordial events. . S1 and S2 are normal. Soft S3 present. No S4 heard. No pericardial rub or any click heard. ABDOMEN: No vessel pulsations or distention. No tenderness. No organomegaly appreciated. No abdominal bruit. Bowel sounds are normally heard. : Deferred. RECTAL: Deferred. LYMPHATIC: No lymphadenopathy noted in the neck or groin. EXTREMITIES: 2+ pitting edema. The lower extremities are diffusely erythematous and scaly with some excoriation but no ulcerations. Peripheral pulses are palpable and fairly good volume and amplitude. MUSCULOSKELETAL: No acute joint deformities or swelling SKIN: Diffuse erythema of the lower extremity with some scaling NEUROPSYCHIATRIC: The patient is alert and oriented x3. Appears to be in a good mood. The higher functions are grossly within normal limits. No tremors or rigidity noted. Data : 07/29/19 05:26 07/29/19 16:30 Other Labs: Abnormal lab results 07/28/19 07/29/19 07/29/19 Range/Units 21:15 05:23 05:26 WBC 11.0 H 10.4 H (4.0-10.0) 10^3/uL RBC 5.98 H 5.58 H (4.1-5.3) 10^6/uL Hgb 17.0 H (11.7-16.6) g/dL Hct 53.0 H (42.0-52.0) % MPV 10.9 H (7.4-10.4) fL Neut # (Auto) 8.1 H (1.8-7.7) 10^3/uL [place] # (Auto) 1.0 H (0.2-0.9) 10^3/uL Sodium 126 L (136-145) mmol/L Potassium (3.5-5.1) mmol/L Chloride 73 L (98-107) mmol/L Carbon Dioxide 43 H* (22-29) mmol/L BUN 52 H (6-20) mg/dL Creatinine (0.7-1.2) mg/dL GFR Calculation 87.9 L (90-130) mL/min Calculated Osmolality 259 L (285-295) mOsm/kg 07/29/19 Range/Units 16:30 WBC (4.0-10.0) 10^3/uL RBC (4.1-5.3) 10^6/uL Hgb (11.7-16.6) g/dL Hct (42.0-52.0) % MPV (7.4-10.4) fL Neut # (Auto) (1.8-7.7) 10^3/uL [place] # (Auto) (0.2-0.9) 10^3/uL Sodium 130 L (136-145) mmol/L Potassium 5.2 H (3.5-5.1) mmol/L Chloride 77 L (98-107) mmol/L Carbon Dioxide 42 H* (22-29) mmol/L BUN 60 H (6-20) mg/dL Creatinine 1.6 H (0.7-1.2) mg/dL GFR Calculation 45.3 L (90-130) mL/min Calculated Osmolality 268 L (285-295) mOsm/kg A&P Assessment and plan (1) Hypotension due to medication: Etiology is not clear. It could be iatrogenic. The severe LV dysfunction also could be a contributing factor. At this point, it may be appropriate to hold off on the diuretics. Patient may be given a fluid challenge with a 250 cc of normal saline. I may hold off on all the antihypertensive medications at this time. Status: Acute Code(s): I95.2 - Hypotension due to drugs (2) Acute on chronic systolic heart failure: Patient's heart failure seems to be fairly compensated. He may be over diuresed. It may be appropriate to hold off on the diuretics at this time. Status: Acute Code(s): I50.23 - Acute on chronic systolic (congestive) heart failure (3) Atrial fibrillation with rapid ventricular response: May continue on the current anticoagulation Status: Acute Code(s): I48.91 - Unspecified atrial fibrillation (4) Hyperlipidemia: Patient is on atorvastatin. This may be continued. Status: Chronic Qualifiers: Hyperlipidemia type: unspecified Qualified Code(s): E78.5 - Hyperlipidemia, unspecified Code(s): E78.5 - Hyperlipidemia, unspecified (5) COPD (chronic obstructive pulmonary disease): Patient has a history of hemoptysis. He was evaluated by the asbestos shingle roofer. May try to optimize the bronchodilator treatment. Management as per the primary. Status: Acute Qualifiers: COPD type: COPD with acute exacerbation Qualified Code(s): J44.1 - Chronic obstructive pulmonary disease with (acute) exacerbation Code(s): J44.9 - Chronic obstructive pulmonary disease, unspecified Additional A&P Information His other problems are Mild hyperkalemia-may hold off on the potassium supplement along with the diuretics Worsening kidney function In view of the worsening BUN/creatinine, it was decided to hold off on the cardiac catheterization today. After careful IV hydration and withholding the diuretics, we may repeat the BMP and CBC in the morning Consider cardiac catheterization, if the blood tests are appropriate. I discussed the current cardiovascular status and the management options with the patient in detail which he understood well. The issues were discussed with Dr. Frost as well Attestations Medical Necessity Statement*: Patient requires continued hospital stay for close monitoring and further management Coding Level of Care Code Acute Director Hardware for Jamilah Fwsherly Diagnoses Hypotension due to medication I95.2 Acute on chronic systolic heart failure I50.23 Atrial fibrillation with rapid ventricular response I48.91 Hyperlipidemia E78.5 Hyperlipidemia type: unspecified COPD (chronic obstructive pulmonary disease) J44.1 COPD type: COPD with acute exacerbation Time Spent (min) 40
[2019-07-29 17:19] LABS: Anion Gap 16.2 (5-19); Blood Urea Nitrogen 60 mg/dL (6-20); Chloride 77 mmol/L (98-107); Glomerular Filtration Rate 45.3 mL/min (90-130); Glucose 92 mg/dL (65-115); Osmolality Calculated 268 mOsm/kg (285-295); Potassium 5.2 mmol/L (3.5-5.1); Sodium 130 mmol/L (136-145)
[2019-07-29 17:22] LABS: Carbon Dioxide 42 mmol/L (22-29)
[2019-07-29] MEDS: sodium chloride 0.9% 250 ML IV (18:40)
[2019-07-29 19:27] LABS: Basophils % 0.2 %; Eosinophils # 0.1 10^3/uL (0.0-0.8); Eosinophils % 1.3 %; Hematocrit 48.2 % (42.0-52.0); Hemoglobin 15.3 g/dL (11.7-16.6); Lymphocytes # 2.5 10^3/uL (0.8-4.8); Lymphocytes % 24.5 %; Mean Corpuscular HGB Conc 31.7 g/dL (30.0-36.0); Mean Corpuscular Hemoglobin 28.4 pg (28.0-34.0); Mean Corpuscular Volume 89.6 fL (80-94); Mean Platelet Volume 10.4 fL (7.4-10.4); Monocytes # 1.2 10^3/uL (0.2-0.9); Monocytes % 11.5 %; Neutrophils # 6.3 10^3/uL (1.8-7.7); Neutrophils % 61.6 %; Nucleated Red Blood Cells % 0 %; Platelet Count 188 10^3/cmm (130-400); Red Blood Count 5.38 10^6/uL (4.1-5.3); Red Cell Distribution Width 14.5 % (12.1-15.1); White Blood Count 10.3 10^3/uL (4.0-10.0)
[2019-07-29] MEDS: sodium chloride 0.9% 1,000 ML 50 ML IV (19:41)
[2019-07-29] MEDS: atorvastatin 40 mg Tablet 20 MG PO (20:07)
--- NOTE | 2019-07-29 22:22 | PC.NURSE ---
THIS NURSE WAS CALLED DOWN TO THE PT ROOM WHERE THE PT HAD PULLED OUT THEIR IV. NEW IV WAS STARTED IN THE LEFT HAND. 22G IN THE LEFT HAND. NS WAS RESTARTED AND IS RUNNING AT 50 ML/HR. PT TOLERATED POORLY. PT STATES THAT THEIR HAND DOESN'T HURT NOW, BUT THEY ARE HURTING 7/10 ON THEIR RIGHT SIDE.
[2019-07-30] VITALS (15 sets, daily range): BP systolic 90–108; BP diastolic 59–75; PULSE 81–109; RESP 15–27; TEMP 36.4–36.8; O2SAT 90–98
[2019-07-30 04:48] LABS: Basophils % 0.3 %; Eosinophils # 0.2 10^3/uL (0.0-0.8); Hematocrit 48.6 % (42.0-52.0); Hemoglobin 15.6 g/dL (11.7-16.6); Lymphocytes # 2.4 10^3/uL (0.8-4.8); Lymphocytes % 26.6 %; Mean Corpuscular HGB Conc 32.1 g/dL (30.0-36.0); Mean Corpuscular Hemoglobin 29.5 pg (28.0-34.0); Mean Platelet Volume 10.6 fL (7.4-10.4); Monocytes # 1.1 10^3/uL (0.2-0.9); Monocytes % 11.6 %; Neutrophils # 5.4 10^3/uL (1.8-7.7); Neutrophils % 58.4 %; Nucleated Red Blood Cells % 0 %; Platelet Count 153 10^3/cmm (130-400); Red Blood Count 5.28 10^6/uL (4.1-5.3); Red Cell Distribution Width 14.7 % (12.1-15.1); White Blood Count 9.2 10^3/uL (4.0-10.0)
[2019-07-30 05:13] LABS: Blood Urea Nitrogen 62 mg/dL (6-20); Calcium 9.3 mg/dL (8.5-10.5); Carbon Dioxide 38 mmol/L (22-29); Chloride 77 mmol/L (98-107); Glomerular Filtration Rate 87.9 mL/min (90-130); Glucose 84 mg/dL (65-115); Osmolality Calculated 260 mOsm/kg (285-295); Sodium 126 mmol/L (136-145)
[2019-07-30] MEDS: HYDROcodone-acetaminophen 10-325 mg Tablet 1 TAB PO ×2 (06:52→20:05)
--- NOTE | 2019-07-30 07:08 | NMCV_ITS ---
NM nate perf SPECT r/s* [id number] Wilfrido Gavin Age: 54 Gender: M : 1965 Exam Date: 07/30/2019 11:37 Ordering Phys: Janet Huber MD ([email or web address]) Technologist: RADHA Beltran Exam Location: [facility] [place] Indications: CHF STRESS TEST [facility] IMAGE PROTOCOL Rest/Stress 1 Lexiscan Day Radiopharmaceutical Dose (mCi) Administration Site Administered by Rest: Tc-99m 11.0 IV RADHA Arvizu Sestamibi Stress:Tc-99m 32.5 IV RADHA Beltran Sestaminuvia Rest: 30-Jul-2019 60 Discovery 630 Stress: 30-Jul-2019 30 Discovery 630 0.4mg Lexiscan. Supine position only as patient was unable to lay prone. SPECT RESULTS Technical Quality: Good Raw Data Analysis: Normal, Soft tissue attenuation Image Corrections: No attenuation or motion correction applied Summed Stress Score: 23 Summed Rest Score: 24 Summed Difference Score: 2 PERFUSION FINDINGS Severely decreases uptake in the basal mid and apical inferior, basal and mid inferoseptal, mid inferolateral, mid anteroseptal and all the apical segments including LV apex. Some reversibility was noted in the mid inferior and apical septal segments. FUNCTIONAL RESULTS (calculated via Gated SPECT) Stress Image LV EF (%): 28 Stress EDV (mL):366 TID: 0.96 Stress ESV (mL):264 FUNCTIONAL FINDINGS: Severe diffuse hypokinesia of the left ventricle, including the septum and the LV apex IMPRESSIONS 1. Myocardial perfusion imaging revealing a large areas of persistent decreased tracer uptake in the inferior, inferoseptal, inferolateral, anteroseptal and apical segments with a very small areas of reversibility in the inferior wall and septum suggestive of extensive myocardial scarring in the distribution of all the 3 coronary arteries with a possible very small areas of rm-infarction ischemia. 2. Diminished LV ejection fraction of 28%. 3. Wall motion abnormality as mentioned above. 4. Markedly dilated LV cavity. No similar previous studies are available for comparison Dr Janet Huber MD FAC (Electronically Signed) Final Date: 30 July 2019 15:05 S
--- NOTE | 2019-07-30 07:08 | ECG_ITS ---
NAME OF STUDY: LEXISCAN SESTAMIBI STRESS TEST INDICATION: Chest Pain PROCEDURE: At the baseline, the EKG revealed sinus rhythm with nonspecific IVCD. Right bundle branch block. Left anterior fascicular block. The baseline blood pressure was 128/59 mm Hg with a heart rate of99 beats/min. Lexiscan was infused over a period of 20 seconds. A total of 0.4 milligrams of Lexiscan was infused. The stress phase was continued for a total of 5 minutes. Heart rate at the end of the stress phase was 111 with a blood pressure 86/58. The EKG at the peak infusion revealed no significant changes. Sestamibi was injected 20 seconds after the Lexiscan infusion. Blood pressure at the end of the recovery phase was 110/63 with a heart rate of 106 per minute. CONCLUSION: 1. No significant EKG changes with the LexiScan infusion 2. No LexiScan induced chest pain or cardiac arrhythmia 3. Normal blood pressure and heart rate response 4. Sestamibi/sestamibi perfusion scan pending; see separate report. Electronically Signed On 08-04-2019 17:57:46 CIVIL ENGINEERING DRAFTSPERSON by Janet Huber M.D. [email or web address]
[2019-07-30] MEDS: ipratropium-albuterol 3 mL Neb INHALATION ×3 (08:10→16:17)
[2019-07-30] MEDS: enoxaparin 120 mg/0.8 mL Syringe SUBCUT ×2 (10:09→20:04)
[2019-07-30] MEDS: digoxin 125 mcg Tablet PO (10:09)
[2019-07-30] MEDS: doxycycline 100 mg Tablet PO ×2 (10:12→18:36)
[2019-07-30] MEDS: aspirin 81 mg EC Tablet PO (10:12)
[2019-07-30] MEDS: metoprolol succinate ER (24 HR) 25 mg Tablet PO (10:12)
[2019-07-30] MEDS: ALPRAZolam 0.5 mg Tablet PO ×2 (12:16→20:05)
--- NOTE | 2019-07-30 13:08 | P.PN_ITS ---
Subjective Subjective: Interval history: Patient is feeling better. Denies any chest pain. Has a baseline shortness of breath. No new arrhythmias are noted on the monitor. Blood pressure has improved since yesterday. Medications: Reviewed: Yes Medication Review Details: Current Medications Acetaminophen (Tylenol) 650 mg PO Q6H PRN PRN Reason: Mild/Mod Pain Or Temp >/= 101 Hydrocodone Bitart/Acetaminophen ([place] 10-325 Mg) 1 tab PO Q6H PRN PRN Reason: Moderate Pain (Scale Score 5-6) Last Admin: 07/30/19 06:52 Dose: 1 tab Documented by: Albuterol/Ipratropium (Duoneb) 3 ml INHALATION Q4H PRN PRN Reason: SHORTNESS OF BREATH Last Admin: 07/30/19 11:20 Dose: 3 ml Documented by: Alprazolam (Xanax) 0.5 mg PO TID PRN PRN Reason: ANXIETY Last Admin: 07/30/19 12:16 Dose: 0.5 mg Documented by: Aminophylline (Aminophylline) 25 mg IVP Q2M PRN PRN Reason: see dose instructions Stop: 07/31/19 06:22 Aspirin (Aspirin Ec) 81 mg PO DAILY [facility] Last Admin: 07/30/19 10:12 Dose: 81 mg Documented by: Atorvastatin Calcium (Lipitor) 20 mg PO BEDTIME [facility] Last Admin: 07/29/19 20:07 Dose: 20 mg Documented by: Bisacodyl (Dulcolax) 10 mg PO DAILY PRN PRN Reason: CONSTIPATION Digoxin (Lanoxin) 125 mcg PO DAILY [facility] Last Admin: 07/30/19 10:09 Dose: 125 mcg Documented by: Doxycycline Monohydrate (Vibramycin) 100 mg PO BID [facility] Last Admin: 07/30/19 10:12 Dose: 100 mg Documented by: Enoxaparin Sodium (Lovenox) 120 mg SUBCUT Q12H [facility] Last Admin: 07/30/19 10:09 Dose: 120 mg Documented by: Metoprolol Succinate (Toprol Xl) 25 mg PO DAILY [facility] Last Admin: 07/30/19 10:12 Dose: 25 mg Documented by: Nitroglycerin (Nitrostat) 0.4 mg SUBLINGUAL Q5M PRN PRN Reason: CHEST PAIN Stop: 07/31/19 06:22 Non-Formulary Medication (Polstvtizvs-Sfmdmemuu-Vqmtmrpw [Trelegy Ellipta]) 1 inh INHALATION DAILY [facility] Ondansetron HCl (Zofran) 4 mg PO Q8H PRN PRN Reason: NAUSEA Vitals/I&O/Wt Last Vital Signs Temp 98.2 F 07/30/19 07:15 Pulse 101 H 07/30/19 11:02 Resp 27 H 07/30/19 11:02 BP 101/69 07/30/19 11:02 Pulse Ox 91 07/30/19 11:02 07/29/19 07/30/19 07/30/19 22:59 06:59 14:59 Intake Total 480 / 600 Output Total 350 / 700 800 / 800 Balance 130 / -100 -800 / -800 Weight last 48 hrs Weight 267 lb 1.6 oz Weight 266 lb 8 oz Weight 262 lb 9.6 oz Physical Exam Narrative: EXAM NARRATIVE: GENERAL: The patient is alert and oriented times three. Not in any acute distress. Slightly tachypneic. HEENT: No significant pallor, icterus or lymphadenopathy. Oral cavity: There ar e no mucous membrane lesions. NECK: Trachea appears to be central. Soft tissue swelling on the back of the neck, possibly lipoma. No JVD or thyromegaly appreciated. No carotid bruit. RESPIRATORY: Chest is symmetrical. No intercostals muscle retraction or any accessory muscle activation. There is no chest wall tenderness. Breath sounds are heard bilaterally. The breath sounds are diminished in the bases. No evidence of consolidation BREASTS: Deferred. HEART: The PMI could not be palpated. No other palpable precordial events. . S1 and S2 are normal. Soft S3 present. No S4 heard. No pericardial rub or any click heard. ABDOMEN: No vessel pulsations or distention. No tenderness. No organomegaly appreciated. No abdominal bruit. Bowel sounds are normally heard. : Deferred. RECTAL: Deferred. LYMPHATIC: No lymphadenopathy noted in the neck or groin. EXTREMITIES: 1-2+ pitting edema. The lower extremities are diffusely erythematous and scaly with some excoriation but no ulcerations. Peripheral pulses are palpable and fairly good volume and amplitude. MUSCULOSKELETAL: No acute joint deformities or swelling SKIN: Diffuse erythema of the lower extremity with some scaling NEUROPSYCHIATRIC: The patient is alert and oriented x3. Appears to be in a good mood. The higher functions are grossly within normal limits. No tremors or rigidity noted. Data : 07/30/19 04:00 07/30/19 04:00 A&P Assessment and plan (1) Hypotension due to medication: Currently improved. We may try to restart him on a small dose of beta- bal namely metoprolol 12.5 mg p.o. twice daily Status: Acute Code(s): I95.2 - Hypotension due to drugs (2) Acute on chronic systolic heart failure: Patient's heart failure seems to be fairly compensated. May continue holding the diuretics today Status: Acute Code(s): I50.23 - Acute on chronic systolic (congestive) heart failure (3) Atrial fibrillation with rapid ventricular response: May continue on the current anticoagulation. Patient is currently in sinus rhythm. Status: Acute Code(s): I48.91 - Unspecified atrial fibrillation (4) Hyperlipidemia: Patient is on atorvastatin. This may be continued. Status: Chronic Qualifiers: Hyperlipidemia type: unspecified Qualified Code(s): E78.5 - Hyperlipidemia, unspecified Code(s): E78.5 - Hyperlipidemia, unspecified (5) COPD (chronic obstructive pulmonary disease): Patient has a history of hemoptysis. He was evaluated by the plastic sheets finishing supervisor. May try to optimize the bronchodilator treatment. Management as per the primary. Status: Acute Qualifiers: COPD type: COPD with acute exacerbation Qualified Code(s): J44.1 - Chronic obstructive pulmonary disease with (acute) exacerbation Code(s): J44.9 - Chronic obstructive pulmonary disease, unspecified Additional A&P Information His other problems are Status post hyperkalemia, currently normokalemic In view of the increasing BUN/creatinine ratio, it was decided to hold off on the cardiac authorization today. We may go ahead and do a myocardial perfusion imaging to evaluate for any significant ischemia. If there is no ischemia, there may not be an urgency in doing the cardiac catheterization. This may be done as an outpatient, once the renal function is stabilized. Based on his clinical progress, further recommendations will be made. Attestations Medical Necessity Statement*: Patient requires continued hospital stay for close monitoring and further management Coding Level of Care Code Acute Hospice Administrator for Agnesg Fwd Diagnoses Hypotension due to medication I95.2 Acute on chronic systolic heart failure I50.23 Atrial fibrillation with rapid ventricular response I48.91 Hyperlipidemia E78.5 Hyperlipidemia type: unspecified COPD (chronic obstructive pulmonary disease) J44.1 COPD type: COPD with acute exacerbation
--- NOTE | 2019-07-30 13:35 | PM.PN ---
Subjective Subjective: Interval history: Wilfrido reports his breathing is okay. He is wondering if he is going to have a nuclear stress test today. No chest pain. Medications: Reviewed: Yes Vitals/I&O/Wt Last Vital Signs Temp 98.2 F 07/30/19 07:15 Pulse 101 H 07/30/19 11:02 Resp 27 H 07/30/19 11:02 BP 101/69 07/30/19 11:02 Pulse Ox 91 07/30/19 11:02 07/29/19 07/30/19 07/30/19 22:59 06:59 14:59 Intake Total 480 / 600 Output Total 350 / 700 800 / 800 Balance 130 / -100 -800 / -800 Weight last 48 hrs Weight 121.155 kg Weight 120.882 kg Weight 119.113 kg Physical Exam Narrative: EXAM NARRATIVE: General exam no apparent distress Cardiovascular irregular, irregular rhythm, heart sounds distant Lungs bibasilar crackles Abdomen is soft, positive bowel sounds Extremities trace bilateral edema, which appears chronic. Data : 07/30/19 04:00 07/30/19 04:00 A&P Assessment and plan (1) Congestive heart failure: Ejection fraction of 17% which is new. Patient has been on an [place] inhibitor started recently at outside facility. He was transferred for cardiology input and evaluation, particularly in regards to possibility of LifeVest/AICD. Secondary to hyponatremia, discontinue metolazone, Bumex. Status: Acute Qualifiers: Heart failure type: systolic Heart failure chronicity: acute Qualified Code(s): I50.21 - Acute systolic (congestive) heart failure Code(s): I50.9 - Heart failure, unspecified (2) COPD (chronic obstructive pulmonary disease): Has been on treatment for recent exacerbation and continues on antibiotics in the form of doxycycline as well as prednisone, breathing treatments as well Status: Acute Qualifiers: COPD type: COPD with acute exacerbation Qualified Code(s): J44.1 - Chronic obstructive pulmonary disease with (acute) exacerbation Code(s): J44.9 - Chronic obstructive pulmonary disease, unspecified (3) Atrial fibrillation and flutter: Chronically on digoxin , rate overall controlled Status: Chronic Code(s): I48.91 - Unspecified atrial fibrillation; I48.92 - Unspecified atrial flutter (4) Hypertension: chronically on beta blockade, [place] inhibitor and diuretics Status: Chronic Qualifiers: Hypertension type: essential hypertension Qualified Code(s): I10 - Essential (primary) hypertension Code(s): I10 - Essential (primary) hypertension (5) Hyperlipidemia: chronically on statin Status: Chronic Qualifiers: Hyperlipidemia type: unspecified Qualified Code(s): E78.5 - Hyperlipidemia, unspecified Code(s): E78.5 - Hyperlipidemia, unspecified Additional A&P Information Hyponatremia. Holding thiazide diuretic, stop fluids Acute kidney injury. Received some fluids overnight. These will be stopped today. Renal function is already improved Appreciate cardiology consultation Cardiology is contemplating Entresto Cardiology considering nuclear stress test Full dose anticoagulation has been started secondary to atrial fibrillation Continue aspirin, statin Cardiology to address whether LifeVest will again be considered TSH was checked and normal. Full code Attestations Medical Necessity Statement*: Needs continued hospitalization for close follow-up of electrolyte abnormality, hyponatremia as well as work-up of severely low EF with nuclear imaging. Coding Level of Care Code Acute Electric Power Line Repairer for Jamilah Palencia Diagnoses Congestive heart failure I50.21 Heart failure type: systolic Heart failure chronicity: acute COPD (chronic obstructive pulmonary disease) J44.1 COPD type: COPD with acute exacerbation Atrial fibrillation and flutter I48.91; I48.92 Hypertension I10 Hypertension type: essential hypertension Hyperlipidemia E78.5 Hyperlipidemia type: unspecified
--- NOTE | 2019-07-30 13:40 | SUR.PREOP ---
Patient reports no pain or discomfort prior to the start of the stress test.
[2019-07-30] MEDS: regadenoson 0.4 Mg/5 ml Syringe IVP (13:41)
--- NOTE | 2019-07-30 15:28 | PC.CHAP ---
Pastoral Care Encounter/Spiritual Assessment Type of Contact [] Declined online trader visit [x] Patient/Family/Request visit [] Outpatient visit [] Follow-up visit [] Physician referral [] Code/Alert [x] Routine visit [] Staff referral [] Actively dying [] Patient sleeping [] Family support [] [] Out of room [] Palliative care [] [] Receiving care in room [] Pre-surgical visit [] Trauma [x] Long length of stay [] ICU visit [] Other: Relational/Emotional Strength [x] Patient feels connected with others/family/visitors/staff [] Distress [] Loneliness/isolation [] Abandonment Spirituality of Patient [x] Person of Felicia [] Attends Mormon of their Felicia [x] Believes in Prayer [] Reads Bible or Church materials [] There are Spiritual issues to be addressed Animal Care Supervisor Interventions [x] Prayer [x] Active listening [x] Non-anxious presence [x] Spiritual/emotional support [] Crisis/trauma care [] Spiritual counseling [x] Bereavement support [] Provided bereavement packet [] Provided Bible/devotional materials [] Provided toy/stuffed animal, coloring book to patient or family member [] Provided Communion [] Anointing/[place] [] Salvation [x] Completed spiritual assessment [] Other: Impact on Illness or Injury [] Angry [] Fearful [] Anxious [] Often cries [] Exhaustion [] Unable to work [] Unable to attend yarsani [] Unable to walk/stand [] Unable to read [] Unable to drive [] Unable to eat/drink [] Unable to sleep [] Unable to be with family [] Patient intubated [] Other: Summary Bright alurt / Happy / likes [id number] abbout life Time spent with patient
--- NOTE | 2019-07-30 15:35 | PC.CHAP ---
Pastoral Care Encounter/Spiritual Assessment Type of Contact [] Declined bag bailer visit [x] Patient/Family/Request visit [] Outpatient visit [] Follow-up visit [] Physician referral [] Code/Alert [x] Routine visit [] Staff referral [] Actively dying [] Patient sleeping [] Family support [] [] Out of room [] Palliative care [] [] Receiving care in room [] Pre-surgical visit [] Trauma [x] Long length of stay [] ICU visit [] Other: Relational/Emotional Strength [x] Patient feels connected with others/family/visitors/staff [] Distress [] Loneliness/isolation [] Abandonment Spirituality of Patient [x] Person of Felicia [] Attends Spiritism of their Felicia [x] Believes in Prayer [] Reads Bible or Yazidi materials [] There are Spiritual issues to be addressed Brake Rider Interventions [x] Prayer [x] Active listening [x] Non-anxious presence [x] Spiritual/emotional support [] Crisis/trauma care [] Spiritual counseling [x] Bereavement support [] Provided bereavement packet [] Provided Bible/devotional materials [] Provided toy/stuffed animal, coloring book to patient or family member [] Provided Communion [] Anointing/[place] [] Salvation [x] Completed spiritual assessment [] Other: Impact on Illness or Injury [] Angry [] Fearful [] Anxious [] Often cries [] Exhaustion [] Unable to work [] Unable to attend muslim [] Unable to walk/stand [] Unable to read [] Unable to drive [] Unable to eat/drink [] Unable to sleep [] Unable to be with family [] Patient intubated [x] Other: able to work Summary Bright and alart / happy / like life Possive attitude Time spent with patient 20 mins
[2019-07-30] MEDS: atorvastatin 40 mg Tablet 20 MG PO (20:04)
[2019-07-31] VITALS (8 sets, daily range): BP systolic 112–121; BP diastolic 63–78; PULSE 89–101; RESP 14–25; TEMP 36.7–36.8; O2SAT 87–93
[2019-07-31 04:56] LABS: Anion Gap 11.4 (5-19); Blood Urea Nitrogen 29 mg/dL (6-20); Calcium 10.2 mg/dL (8.5-10.5); Carbon Dioxide 40 mmol/L (22-29); Chloride 85 mmol/L (98-107); Glomerular Filtration Rate 117.5 mL/min (90-130); Glucose 95 mg/dL (65-115); Osmolality Calculated 271 mOsm/kg (285-295); Potassium 4.4 mmol/L (3.5-5.1); Sodium 132 mmol/L (136-145)
--- NOTE | 2019-07-31 09:08 | P.PN_ITS ---
Subjective Subjective: Interval history: Wilfrido is 54 years old and was admitted on the with shortness of breath and evidence of congestive heart failure. He has a long history of what is most likely a nonischemic cardiomyopathy and noncompliance. Previously has had a LifeVest in place but it suddenly disappeared and he probably did not use it. He has neglected his health and it is difficult to tell whether or not he was actually taking his medicines at home. Upon his arrival here he was diuresed. This caused his creatinine to go up to 1.6. His BUN reached a maximum of 62. The diuretics were held and his creatinine is down to 0.7 today and BUN is down to 29. Initially there was an intent for cardiac catheterization. This was put on hold given his creatinine. Stress testing was done yesterday which did not show any ischemia. A LifeVest has been ordered again. Medications: Reviewed: Yes Vitals/I&O/Wt Last Vital Signs Temp 98.0 F 07/31/19 04:00 Pulse 93 07/31/19 07:09 Resp 20 H 07/31/19 07:09 BP 112/63 07/31/19 07:09 Pulse Ox 91 07/31/19 07:09 07/30/19 07/31/19 07/31/19 22:59 06:59 14:59 Intake Total 360 / 600 240 / 840 120 / 120 Output Total 1475 / 2275 2250 / 4525 Balance -1115 / -1675 -2009 / 3685 120 / 120 Weight last 48 hrs Weight 262 lb 8 oz Weight 268 lb 9.6 oz Weight 267 lb 1.6 oz Physical Exam Narrative: EXAM NARRATIVE: GENERAL: In general he is awake and alert, comfortable with a flat affect and appears depressed HEENT: Exam within normal limits. NECK: Supple without jugular vein distention. The carotid upstroke is normal without bruits. BACK: Exam normal. LUNGS: Clear. HEART: Regular rate and rhythm. ABDOMEN: Benign without organomegaly or tenderness. EXTREMITIES: No edema. NEUROLOGIC: Exam normal. SKIN: Unremarkable. Data : 07/30/19 04:00 07/31/19 04:23 A&P Assessment and plan (1) Acute on chronic systolic heart failure: Status: Acute Code(s): I50.23 - Acute on chronic systolic (congestive) heart failure (2) Atrial fibrillation and flutter: Status: Chronic Code(s): I48.91 - Unspecified atrial fibrillation; I48.92 - Unspecified atrial flutter (3) Hyperlipidemia: Status: Chronic Qualifiers: Hyperlipidemia type: unspecified Qualified Code(s): E78.5 - Hyperlipidemia, unspecified Code(s): E78.5 - Hyperlipidemia, unspecified (4) COPD (chronic obstructive pulmonary disease): Status: Acute Qualifiers: COPD type: COPD with acute exacerbation Qualified Code(s): J44.1 - Chronic obstructive pulmonary disease with (acute) exacerbation Code(s): J44.9 - Chronic obstructive pulmonary disease, unspecified (5) Hypertension: Status: Chronic Qualifiers: Hypertension type: essential hypertension Qualified Code(s): I10 - Essential (primary) hypertension Code(s): I10 - Essential (primary) hypertension Additional A&P Information He is not a good candidate for LifeVest or a defibrillator. His compliance has been shown to be poor in the past. If he does not pay attention to the LifeVest this time I would certainly not recommend a defibrillator. I do not think he needs coronary angiography. I do not think he has significant coronary disease. We will follow him up as an outpatient. I think he can safely be discharged today Attestations Medical Necessity Statement*: Not applicable Coding Level of Care Code Established Pt Acute Life Science Research Assistant for Jamilah Palencia Patient Type Established History Detailed Exam Detailed Medical Decision Making Moderate Complexity Diagnoses Acute on chronic systolic heart failure I50.23 Atrial fibrillation and flutter I48.91; I48.92 Hyperlipidemia E78.5 Hyperlipidemia type: unspecified COPD (chronic obstructive pulmonary disease) J44.1 COPD type: COPD with acute exacerbation Hypertension I10 Hypertension type: essential hypertension
[2019-07-31] MEDS: enoxaparin 120 mg/0.8 mL Syringe SUBCUT (09:20)
[2019-07-31] MEDS: digoxin 125 mcg Tablet PO (09:20)
[2019-07-31] MEDS: doxycycline 100 mg Tablet PO (09:21)
[2019-07-31] MEDS: metoprolol succinate ER (24 HR) 25 mg Tablet PO (09:21)
[2019-07-31] MEDS: aspirin 81 mg EC Tablet PO (09:21)
--- NOTE | 2019-07-31 10:53 | PM.DCS ---
Discharge Providers Date of Admission: 07/27/19 04:12 Date of Discharge: July 31, 2019 Attending Provider at Admission: Susie Johnson MD Attending Provider at Discharge: Bao Frost MD Primary Care Provider: Norman Ruggiero MD Diagnoses at Discharge Discharge Diagnosis (1) Acute on chronic systolic heart failure: Status: Acute Problem details: Improved compensation Zaroxolyn is to be taken every other day instead of as needed. (2) Atrial fibrillation and flutter: Status: Chronic Problem details: Rate controlled. Initiation of anticoagulation occurred (3) Hyperlipidemia: Status: Chronic Problem details: Continue statin Qualifiers: Hyperlipidemia type: unspecified Qualified Code(s): E78.5 - Hyperlipidemia, unspecified (4) COPD (chronic obstructive pulmonary disease): Status: Acute Problem details: Home oxygen evaluation prior to discharge Qualifiers: COPD type: COPD with acute exacerbation Qualified Code(s): J44.1 - Chronic obstructive pulmonary disease with (acute) exacerbation (5) Hypertension: Status: Chronic Problem details: Continue current medications Qualifiers: Hypertension type: essential hypertension Qualified Code(s): I10 - Essential (primary) hypertension Reason for Visit Reason for Visit: Reason For Visit: CHF Hospital Course Hospital Course: Wilfrido is a 54-year-old male who was transferred from [facility] secondary to very low EF, acute decompensated congestive heart failure. While here at the hospital a cardiology consultation was obtained. He was diuresed. With diuresis his breathing improved. Echocardiogram at outlying institution demonstrated an EF of 19%. Nuclear stress test was performed rating low EF with extensive myocardial scarring and only slight amount of rm-infarct ischemia. Cardiology believed an angiogram was not indicated at this time. While in the hospital he did have acute kidney injury secondary to diuresis. This was corrected with discontinuing diuresis and adding a small amount of fluid back. By July 31 he was ready for discharge. Heart failure appears compensated at that time. He will follow-up with cardiology, primary care provider, [facility] for depression. LifeVest was considered, but cardiology did not believe it was appropriate at this time. On discharge she will take his Zaroxolyn every other day, and get repeat blood work on August 03 with his primary care provider for further instruction. He will receive a home oxygen evaluation prior to discharge. Physical Exam Narrative: EXAM NARRATIVE: General exam no apparent distress Cardiovascular irregular, irregular Lungs clear but with diminished breath sounds Abdomen is soft, positive bowel sounds Extremities 1+ edema Discharge Data Data Completed and Pending: Completed Studies During Hospitalization Category Date Time Status NM nate perf SPECT r/s* 47105 Routin e Nuc Med 07/30/19 07:08 Completed Pending at discharge Category Date Time Status GRAVITY FLOW IRRIGATOR request for service Routin e Exams 07/30/19 07:00 Ordered Sestamibi Stress Test Request Routi ne Exams 07/30/19 07:08 Ordered Labs from last 24 hours 07/31/19 04:23 Sodium 132 L Potassium 4.4 Chloride 85 L Carbon Dioxide 40 H Anion Gap 11.4 BUN 29 H Creatinine 0.7 GFR Calculation 117.5 Glucose 95 Calculated Osmolal ity 271 L Calcium 10.2 Vitals: Last Vital Signs Temp 98.0 F 07/31/19 04:00 Pulse 91 07/31/19 09:20 Resp 20 H 07/31/19 07:09 BP 112/63 07/31/19 07:09 Pulse Ox 91 07/31/19 07:09 Discharge Plan Discharge Patient Disposition: Home Health Service Condition: Stable Prescriptions: New alprazolam 0.5 mg Tablet 0.5 mg PO TID PRN (Reason: Anxiety) Qty: 10 RF: 0 atorvastatin 40 mg Tablet 20 mg PO BEDTIME Qty: 30 RF: 0 Eliquis 5 mg tablet 5 mg PO BID Qty: 60 RF: 0 Continued atorvastatin 10 mg Tablet 10 mg PO DAILY RF: 0 aspirin 81 mg Tablet,Delayed Release (Dr/Ec) 81 mg PO DAILY RF: 0 bumetanide 1 mg Tablet 2 mg PO 0900,1400 RF: 0 doxycycline hyclate 100 mg Capsule 100 mg PO BID RF: 0 ipratropium-albuterol 0.5 mg-3 mg(2.5 mg base)/3 mL Solution For Nebulization 3 ml INHALATION Q6H RF: 0 hydrocodone-acetaminophen 10-325 mg Tablet 1 tab PO Q6H PRN (Reason: Moderate Pain (Scale Score 5-6)) RF: 0 lisinopril 5 mg Tablet 5 mg PO BEDTIME RF: 0 digoxin 125 mcg (0.125 mg) Tablet 125 mcg PO DAILY RF: 0 metoprolol succinate 25 mg Tablet Extended Release 24 Hr 25 mg PO DAILY RF: 0 Xopenex HFA 45 mcg/actuation Hfa Aerosol Inhaler 2 inh INHALATION Q6H PRN (Reason: Shortness Of Breath) RF: 0 potassium chloride 20 mEq Tablet Extended Release 20 meq PO DAILY RF: 0 Trelegy Ellipta 100-62.5-25 mcg Blister With Device 1 inh INHALATION DAILY RF: 0 Changed metolazone 2.5 mg Tablet 2.5 mg PO EVERY OTHER DAY PRN (Reason: Edema) Qty: 0 RF: 0 Discontinued prednisone 20 mg Tablet 20 mg PO DAILY RF: 0 Discharge Orders: Discharge Order (Routine); Ordered 07/31/19 Ordered By: Bao Frost Other Ambulatory Orders: DME: Life Vest (Order) Location: None Selected Ordered By: Janet Huber Referrals: Janet Huber MD [Physician] - 7-10 days Sonal Seymour MD [Physician] - 08/03/19 2:00 pm (CBC, BMP on follow-up) Discharge Diet: Cardiac Discharge Activity: Increase activity as tolerated Activity Restrictions/Additional Instructions: Weight yourself daily. If over 3 pounds weight gain 2 days in a row please call primary care provider or cardiology clinic. Referral to behavioral health care for depression/anxiety Home oxygen evaluation prior to discharge Discharge Attestations Time Spent in Discharge Care*: greater than 30 min Quality Metrics Clinical Quality Measures During this hospital stay, did patient experience: None Coding Level of Care Code Acute Systems Analyst Developer for Jamilah Fwd Diagnoses Acute on chronic systolic heart failure I50.23 Atrial fibrillation and flutter I48.91; I48.92 Hyperlipidemia E78.5 Hyperlipidemia type: unspecified COPD (chronic obstructive pulmonary disease) J44.1 COPD type: COPD with acute exacerbation Hypertension I10 Hypertension type: essential hypertension
[2019-07-31] MEDS: ipratropium-albuterol 3 mL Neb INHALATION (10:56)
== END 2019-07-31 15:25 | disposition home health service (06) | DRG 292 ==
PROVIDERS: Internal Medicine Cardiovascular Disease; Admitting Provider Hospitalist; Family Provider Family Medicine; PCP Family Medicine; Visit Provider Internal Medicine
DX: I11.0 Hypertensive heart disease with heart failure (principal); J44.1 Chronic obstructive pulmonary disease with (acute) exacerbation; I48.92 Unspecified atrial flutter; N17.9 Acute kidney failure, unspecified; I50.23 Acute on chronic systolic (congestive) heart failure; I48.91 Unspecified atrial fibrillation; I42.9 Cardiomyopathy, unspecified; E78.5 Hyperlipidemia, unspecified; Z79.82 Long term (current) use of aspirin; T50.2X5A Adverse effect of carbonic-anhydrase inhibitors, benzothiadiazides and other diuretics, initial encounter; Z79.01 Long term (current) use of anticoagulants; Z90.49 Acquired absence of other specified parts of digestive tract; Z87.891 Personal history of nicotine dependence
CPT/HCPCS: 12345; 36415; 78452; 80048; 80061; 80162; 83735; 83880; 84100; 84443; 85025; 93005; 93017; 94640; 96372; A9500; J1644; J1650; J2001; J2785; J3490; J7030; J7050; J7512

== ENCOUNTER → 2019-08-10 10:57 | Outpatient (BNVA) | payer MEDICARE, MEDICAID, SELFPAY | PROVIDERS: Family Provider Family Medicine; PCP Family Medicine; Visit Provider Family Medicine | DX: I11.0 Hypertensive heart disease with heart failure (principal); I50.21 Acute systolic (congestive) heart failure; J44.1 Chronic obstructive pulmonary disease with (acute) exacerbation; J44.9 Chronic obstructive pulmonary disease, unspecified; M25.511 Pain in right shoulder; M51.9 Unspecified thoracic, thoracolumbar and lumbosacral intervertebral disc disorder; M50.90 Cervical disc disorder, unspecified, unspecified cervical region; G89.29 Other chronic pain; F41.1 Generalized anxiety disorder; F11.20 Opioid dependence, uncomplicated | CPT/HCPCS: 80048; 85025 ==

== ENCOUNTER → 2019-08-16 08:16 | Outpatient (BNVA) | payer MEDICARE, MEDICAID, SELFPAY | PROVIDERS: Family Provider Family Medicine; PCP Family Medicine; Referring Provider Family Medicine; Visit Provider Anesthesiology Pain Medicine | DX: M54.12 Radiculopathy, cervical region (principal); M25.519 Pain in unspecified shoulder; M47.816 Spondylosis without myelopathy or radiculopathy, lumbar region | CPT/HCPCS: 99203; 99999 ==